=== PATIENT | female | born 2000 | race Caucasian/White ===

== ENCOUNTER 2020-07-09 10:00 | Inpatient (IN) ==
[2020-07-09] MEDS ORDERED: Ringers Solution, Lactated 1,000 ML ONE (10:43)
[2020-07-09] MEDS: Ringers Solution, Lactated 1,000 ML IVC SCH ×2 (10:46→12:47)
[2020-07-09] MEDS ORDERED: Lidocaine 1% 20 ML MDV INFILT PRN (10:54)
[2020-07-09] MEDS ORDERED: Metoclopramide 10 MG/2 ML VIAL IVP PRN (10:54)
[2020-07-09] MEDS ORDERED: Azithromycin 500 MG in 0.9 % Sodium Chloride 250 ML IVPB ONE (10:54)
[2020-07-09] MEDS ORDERED: *HR* FentaNYL (PF) 100 MCG/2 ML VIAL IVP PRN (10:54)
[2020-07-09] MEDS ORDERED: Ondansetron 4 MG/2 ML VIAL IVP PRN (10:54)
[2020-07-09] MEDS ORDERED: Famotidine 20 MG/2 ML VIAL IVP PRN (10:54)
[2020-07-09] MEDS ORDERED: Oxytocin 20 units/ LR 1000 mL 20 UNIT/1,000 ML BAG IVC SCH ×2 (11:00→22:47)
[2020-07-09 11:15] LABS: Basophils % 0.2 %; Eosinophils # 0.2 K/mcL (0.0-0.6); Eosinophils % 1.4 %; Hematocrit 35.1 % (35.3-44.9); Hemoglobin 11.7 g/dL (11.5-15.4); Immature Granulocytes % 0.7 % (0-4); Lymphocytes # 1.2 K/mcL (0.6-4.6); Lymphocytes % 9.6 %; Mean Corpuscular HGB Conc 33.3 g/dL (31.6-35.5); Mean Corpuscular Volume 93.1 fL (83.0-100.0); Mean Platelet Volume 11.9 fL (9.4-12.4); Monocytes # 0.6 K/mcL (0.0-1.3); Monocytes % 4.8 %; Neutrophils # 10.1 K/mcL (1.6-8.9); Platelet Count 170 K/mcL (140-400); Red Blood Count 3.77 M/mcL (3.82-4.97); Red Cell Distribution Width 13.1 % (11.5-14.5); Segmented Neutrophils % 83.3 %; White Blood Count 12.1 K/mcL (4.3-11.1)
[2020-07-09 11:25] LABS: Amphetamine Screen,Urine Negative ng/mL (Cutoff=1000); Barbiturate Screen,Urine Negative ng/mL (Cutoff=200); Benzodiazepines Screen,Urine Negative ng/mL (Cutoff=200); Cannabinoid Screen,Urine Negative ng/mL (Cutoff = 50); Cocaine Screen,Urine Negative ng/mL (Cutoff= 300); Opiate Screen,Urine Negative ng/mL (Cutoff=300); Phencyclidine Screen,Urine Negative ng/mL (Cutoff=25)
[2020-07-09] MEDS ORDERED: Bupivacaine-MPF 0.25% 10 ML VIAL EP ONE (12:06)
[2020-07-09] MEDS ORDERED: EPHEDrine 50 MG/ML VIAL IVP PRN (12:06)
[2020-07-09] MEDS ORDERED: *HR* FentaNYL (PF) 100 MCG/2 ML VIAL EP ONE (12:06)
[2020-07-09] MEDS ORDERED: *HR* FentaNYL (PF) 100 MCG/2 ML VIAL ONE (12:08)
[2020-07-09] MEDS ORDERED: Bupivacaine-MPF 0.25% 10 ML VIAL ONE (12:08)
[2020-07-09] MEDS ORDERED: Epidural Premix (fent/bupiv) 110 ML EP SCH (12:15)
[2020-07-09 12:36] LABS: Alanine Aminotransferase 13 Units/L (7-52); Aspartate Amino Transferase 19 Units/L (13-39); BUN/Creatinine Ratio 12 (6-26); Blood Urea Nitrogen 7 mg/dL (6-20); Lactate Dehydrogenase 205 Units/L (140-271); Uric Acid 4.4 mg/dL (2.3-7.6); eGFR For African Americans > 60 (> 60); eGFR For Non-African Americans > 60 (> 60)
[2020-07-09 12:42] LABS: Protein/Creatinine Ratio,Urine 0.26 mg/mg (0.00-0.20)
[2020-07-09] MEDS ORDERED: Lanolin 7 G OINT...G. TP PRN (22:47)
[2020-07-09] MEDS ORDERED: Rho Immune Globulin 1,500 UNIT SYRINGE IM PRN (22:47)
[2020-07-09] MEDS ORDERED: Benzocaine/Menthol 56 GM AEROSOL SPRAY TP PRN (22:47)
[2020-07-09] MEDS: Ibuprofen 600 MG TABLET PO SCH (22:57)
[2020-07-10] MEDS: Acetaminophen 325 MG TABLET PO SCH ×2 (08:32→14:46)
[2020-07-10] MEDS ORDERED: Prenatal Vit/FA 1 EACH TABLET PO SCH (09:00)
[2020-07-10] MEDS: Ibuprofen 600 MG TABLET PO SCH ×2 (12:28→17:49)
[2020-07-10 16:21] VITALS: BP 99/64
== END 2020-07-10 20:25 | disposition home or self-care (01) | DRG 807 ==
LOC: 1NENULAB 10:05 → 1NENUOBS 22:05
PROVIDERS: ADMIT Obstetrics & Gynecology; ATTEND Obstetrics & Gynecology